=== PATIENT | male | born 1975 | race Caucasian/White ===

== ENCOUNTER → 2017-02-28 | Outpatient (CLI) | payer BC ==
[~2017-02-28] MED LIST: IBUP-1114 PO; TYLE325T5 PO
--- NOTE | 2017-02-28 13:31 | REP ---
LEFT KNEE: AP and lateral views of the left knee performed. No fracture, dislocation, or intrinsic bone disease is seen. Joint spaces appear unremarkable. I do not see a significant joint effusion. IMPRESSION: No evidence of acute fracture or dislocation. Signed by Jonathan Pride MD 02/28/2017 04:55 P
== END ==
LOC: M LRY 12:19
PROVIDERS: ATTEND Physician Assistant
DX: S89.92XA Unspecified injury of left lower leg, initial encounter (principal); X58.XXXA Exposure to other specified factors, initial encounter; Y92.89 Other specified places as the place of occurrence of the external cause; Y92.9 Unspecified place or not applicable; Y93.9 Activity, unspecified

== ENCOUNTER → 2018-05-31 | Outpatient (CLI) | payer SELFPAY ==
--- NOTE | 2018-06-01 07:15 | REP ---
PA CHEST WITH RIGHT RIBS: 05/31/2018. CLINICAL HISTORY: Trauma, striking lateral aspect right chest wall, inferior to the axilla. Pain with deep inspiration. COMPARISON: Chest x-ray 01/30/2016. FINDINGS: PA CHEST: Lungs are well inflated and without pleural effusion, lateral pleural thickening, apical scarring, or pneumothorax. No infiltrate, atelectasis, or mass. The heart is not enlarged. There is no widening of the mediastinum. The aorta and airway intact. Hilar contours symmetric and normal. RIGHT RIBS: Four views of the ribs show no visible or displaced rib fracture, focal rib lesion, periosteal reaction, or other acute finding. That portion of clavicle, scapula, and humerus included are unremarkable. IMPRESSION: 1. Negative PA chest and right rib series. No visible fracture, effusion, pneumothorax, pleural thickening, or other acute finding. Electronically Signed by Kenneth Mcguire MD 06/01/2018 08:20 A
== END ==
LOC: M LRY 14:24
PROVIDERS: ATTEND Physician Assistant
DX: R07.81 Pleurodynia (principal)

== ENCOUNTER → 2019-12-22 | Outpatient (CLI) | payer OTHER ==
--- NOTE | 2020-01-12 13:55 | REP ---
CHEST X-RAY CLINICAL: Cough and chest congestion. TECHNIQUE: PA and lateral. COMPARISON: 01/30/2016 FINDINGS: Mediastinum and cardiac silhouette normal. Lung bajwa clear. No consolidation, effusion, or pneumothorax. Skeletal structures intact. IMPRESSION: No acute cardiopulmonary process or focal consolidation. MTDD
== END ==
LOC: M LRY 15:39
PROVIDERS: ATTEND Physician Assistant
DX: R05 Cough (principal)

== ENCOUNTER → 2022-02-04 | Outpatient (REF) | payer OTHER ==
[2022-02-05 10:21] LABS: GC DNA AMPLIFICATION NEGATIVE (NEGATIVE)
== END ==
LOC: M LAB REF 08:21
PROVIDERS: ATTEND Physician Assistant
DX: Z20.2 Contact with and (suspected) exposure to infections with a predominantly sexual mode of transmission (principal)